=== PATIENT | female | born 1935 | race Caucasian/White ===

== ENCOUNTER 2017-01-26 11:34 | Emergency (ER) | payer OTHER ==
[~2017-01-26] VITALS: Ht 160 cm; Wt 61.2 kg
[~2017-01-26 11:34] MED LIST: AMLODIPINE BESY10 M1 PO; ASPIRIN EC325 M2 PO; ATENOLOL50 M1 PO; ATORVASTATIN CA40 M1 PO; CELEXA10 M1 PO; CENTRUM SILVER1 EAC3 PO; FUROSEMIDE20 M1 PO; JANUVIA100 M1 PO; LISINOPRIL40 M1 PO; METFORMIN HCL1000 M1 PO; NORCO 5-325 TA1 EACH PO; OS-CAL 500+D31 EAC1 PO; VITAMIN E400 UNI4 PO; ZETIA10 M1 PO
--- NOTE | 2017-01-26 12:48 | ED GENERAL ADULT ---
History of Present Illness General Chief Complaint: General Adult Stated Complaint: WEAK PER PT DOESN'T FEEL GOOD Source: patient Exam Limitations: no limitations Vital Signs & Intake/Output Vital Signs & Intake/Output Vital Signs Date Time Temp Pulse Resp B/P B/P Pulse O2 O2 Flow FiO2 Mean Ox Delivery Rate 01/26 1354 97.8 52 18 140/63 96 Room Air 01/26 1138 97.5 62 16 114/57 95 Room Air Triage Note: 81 STATES "I JUST DONT FEEL WELL". STATES SHE HAS NOT HAD THE DESIRE TO EAT, DENIES N/V. HAD DIARRHEA 2 DAYS AGO BUT REPORTS RELIEF WITH IMMODIUM. DENIES COUGH OR URI SYMPTOMS. DENIES URINARY SYMPTOMS. HAS BEEN INSIDE AIR CONDITIONING. SKIN APPEARS SLIGHTLY PALE IN COLOR. AFEBRILE TAKEN FOR EKG Triage Nurses Notes Reviewed? yes HPI: Pt is coming in for a generalized weakness and discomfort for 4-5 days. Pt had 2 episodes of watery non-bloody diarrhea on last Monday without specific causes, c /'o nauseous, but denied ab pain, or vomiting. She took immodium and resolved, but since had low appetite to eat and felt low on energy. She kep herself hydrated with water and orange juice. Today she had another episode of watery diarrhea and took another tablet of immodium. She had no similar episodes before. She is compliant with her diabetic and hypertensive meds. She denied fever, SOB/CP, ab pain, urinary/bowel incontinence, or muscular/ neurological/skin complaints. (VANDANA FORD,FRED MIN) Allergies Coded Allergies: sulfamethoxazole (LIVER INVOLVEMENT 02/03/17) Reconcile Medications Amlodipine Besylate 10 MG TABLET 1 TAB PO DAILY HEART (Reported) Amoxicillin 500 MG CAPSULE 2 CAP PO BID UTI Aspirin (Ecotrin*) 325 MG TABLET.DR 1 TAB PO DAILY HEART/BLOOD (Reported) Atenolol 50 MG TABLET 1 TAB PO DAILY HEART (Reported) Atorvastatin Calcium 40 MG TABLET 1 TAB PO DAILY CHOLESTEROL (Reported) Calcium Carbonate/Vitamin D3 (Os-Raoul 500+D3 Caplet) 1 EACH TABLET 1 TAB PO DAILY SUPPLEMENT (Reported) Ciprofloxacin HCl (Cipro) 250 MG TABLET 1 TAB PO BID UTI Citalopram Hydrobromide (Celexa) 10 MG TABLET 1 TAB PO DAILY DEPRESSION ( Reported) Ezetimibe (Zetia) 10 MG TABLET 1 TAB PO DAILY CHOLESTEROL (Reported) Furosemide 20 MG TABLET 1 TAB PO DAILY WATER PILL (Reported) Lisinopril 40 MG TABLET 1 TAB PO DAILY HEART (Reported) Metformin HCl 1,000 MG TABLET 1 TAB PO BID DIABETES (Reported) Multivit-Min/FA/Lycopen/Lutein (Centrum Silver Tablet) 1 EACH TABLET 1 TAB PO DAILY SUPPLEMENT (Reported) Sitagliptin Phosphate (Januvia) 100 MG TABLET 1 TAB PO DAILY DIABETES ( Reported) Vitamin E Acetate (Vitamin E) 400 UNIT CAPSULE 1 CAP PO DAILY SUPPLEMENT ( Reported) (MELVIN FORD,DAVIS Rich) Past History Travel History Traveled to [place] past 21 day No Medical History Any Pertinent Medical History? see below for history Neurological: NONE EENT: NONE Cardiovascular: CHF, hypertension, hyperlipidemia Respiratory: NONE Gastrointestinal: NONE Hepatic: NONE Renal: NONE Musculoskeletal: osteoporosis Psychiatric: NONE Endocrine: diabetes Blood Disorders: NONE Cancer(s): NONE Pneumonia Vaccine: 04/09/09 Surgical History Surgical History: right hip fracture, left femur fracture Psychosocial History Who do you live with Patient/Self Services at Home None What is your primary language Croatian Tobacco Use: Never used Family History Hx Contributory? No (VANDANA FORD,FRED MIN) Review of Systems Review of Systems Constitutional: Reports: see HPI, weakness. Comments Skin: no jaundice, hives, eczema, rashes, or abnormal moles. Eyes: no irritation, discharge, dry eyes, or vision change. ENMT: no sneezing, snoring, headaches, hearing loss, ear pain, frequent nosebleeds, nose/sinus problems, bleeding gums, dry mouth, mouth ulcers, oral abnormalities, teeth problems, or sore throat. Respiratory: no cough, wheezing, shortness of breath, or coughing up blood. Cardiovascular: no SOB, no palpitations, chest pain, no arm pain on exertion, or leg swelling. Gastrointestinal: diarrhea x 3 episodes + low appetite in last 5 days. no vomiting, diarrhea, constipation, abdominal pain, rectal bleeding. Genitourinary: no incontinence, hematuria, difficulty urinating, or increased frequency. Musculoskeletal: no muscle aches or weakness, no arthralgias/joint pain, and back pain; Neurologic: no loss of consciousness or balance; no weakness, numbness, seizures , or dizziness. Psych: no depression, anxiety, sleep disturbances, homicidal thoughts, or suicidal thoughts. (VANDANA FORD,FRED MIN) Physical Exam Physical Exam General Appearance: no apparent distress, alert, awake, lethargic Comments: Head: normocephalic and atraumatic. Lungs: no dyspnea and good air movement. Cardiovascular: Apical Impulse: not displaced. normal S1 and S2; no murmurs, rubs, or gallops; and RRR. no carotid bruits. Abdomen: normal bowel sound. No masses, tenderness (no guarding, no rebound), or CVA tenderness and soft and non-distended. Liver: non-tender and no hepatomegaly. Spleen: non-tender and no splenomegaly. Musculoskeletal:: normal tone and strength (5/5 throughout) . Joints, Bones, and Muscles: no contractures, malalignment, tenderness, or bony abnormalities and normal movement of all extremities. Extremities: no cyanosis, edema, varicosities, or palpable cord. Neurologic: grossly intact. Skin: no rash, lesions, ulcer, induration, nodules, jaundice, or abnormal nevi and good turgor. Psychiatric: good judgement. Normal mood and affect and active and alert. Orientation to time, place, and person. Recent memory normal and remote memory normal. Core Measures ACS in differential dx? No CVA/TIA Diagnosis: No Severe Sepsis Present: No Septic Shock Present: No (VANDANA FORD,FRED MIN) Progress Differential Diagnoses I considered the following diagnoses in my evaluation of the patient: Diagnostic Imaging: Discussed w/RAD: Radiology Read. CXR Impression: no acute abnormality, no infiltrates, normal size heart, normal mediastinum, PATIENT: UBALDO RATLIFF PRESENT AGE: 81 PATIENT ACCOUNT NO: [id number] : 33 LOCATION: [facility] ORDERING PHYSICIAN: FRED ROSS MD SERVICE DATE: 01/26/177388 EXAM TYPE: RAD - XRY-CHEST XRAY, PA AND LATERAL EXAMINATION: CHEST 2 VIEWS CLINICAL INFORMATION: Fatigue, weakness. COMPARISON: 11/02/2015. TECHNIQUE: PA and lateral views of the chest were obtained. FINDINGS: The cardiac silhouette is not enlarged. The mediastinal and hilar contours are unremarkable. There are neither pleural effusions nor pneumothoraces. There are no consolidations. The lungs are hyperinflated. There is moderate leftward curvature to the lower lumbar spine. IMPRESSION: No evidence for acute disease. Lung hyperinflation. DICTATED BY: STUART MENDOZA MD DATE/TIME DICTATED:01/26/171405 SENIOR INVESTMENT MANAGER:BRENDA DATE/TIME TRANSCRIBED:01/26/171405 CONFIDENTIAL, DO NOT COPY WITHOUT APPROPRIATE AUTHORIZATION. <Electronically signed in Other Vendor System> SIGNED BY: STUART MENDOZA MD 01/26/17 1426 Initial ED EKG: normal axis, normal intervals, normal p-waves, normal QRS complex, normal sinus rhythm (VANDANA FORD,FRED MIN) Plan of Care: Orders Procedure Date/time Status URINALYSIS 01/26 133 Complete COMPREHENSIVE METABOLIC PANEL 01/26 133 Complete CBC WITHOUT DIFFERENTIAL 01/26 1330 Complete EKG 01/26 1139 Active Laboratory Tests 01/26/17 1800: Urine Color YEL, Urine Clarity CLEAR, Urine pH 6.0, Ur Specific Bliss 1.010, Urine Protein 30 H, Urine Ketones NEG, Urine Nitrite NEG, Urine Bilirubin NEG, Urine Urobilinogen 0.2, Ur Leukocyte Esterase SMALL H, Ur Microscopic SEDIMENT EXAMINED, Urine RBC RARE, Urine WBC 15-25 H, Ur Epithelial Cells RARE, Urine Bacteria FEW H, Hyaline Casts 3-5 H, Granular Casts RARE H, Urine Hemoglobin TRACE-INTACT, Urine Glucose NEG 01/26/17 1358: Anion Gap 9, Estimated GFR 39 L, BUN/Creatinine Ratio 18.5, Glucose 99, Calcium 10.1, Total Bilirubin 0.9, AST 31, ALT 42, Alkaline Phosphatase 59, Total Protein 6.6, Albumin 3.9, Globulin 2.7, Albumin/Globulin Ratio 1.4, CBC w Diff NO MAN DIFF REQ, RBC 3.45 L, MCV 90.4, MCH 30.7, RDW 14.3, MPV 6.4 L, Gran % 57.0, Lymphocytes % 26.6, Monocytes % 9.9 H, Eosinophils % 5.7 H, Basophils % 0.8, Absolute Granulocytes 2.0, Absolute Lymphocytes 0.9 L, Absolute Monocytes 0.3, Absolute Eosinophils 0.2, Absolute Basophils 0, PUBS MCHC 34.0 01/26/2017 1752 Pt's bloodwork and HPI led to potential dehydration status. CXR has ruled out pneumonia. We have repleted her with NS and she stated she is feeling better now. Advised to pee for urinalysis to rule out possible UTI. 01/26/2017 1833 Pt's UA revealed UTI. Due to her decreased renal function and drug allergy, we will prescibe her with cipro for take-home meds. (VANDANA FORD,FRED MIN) Comments: 01/26/2017 6:02:09 PM we have updated ubaldo on her test results and she has ambulated easily to the emergency department bathroom to provide a urinalysis. (MELVIN FORD,DAVIS Rich) Departure Departure Disposition: HOME OR SELF CARE Condition: Stable Clinical Impression Primary Impression: Dehydration Referrals: LANA VILLAGOMEZ MD (PCP/Family) Additional Instructions: Please follow up with your primary care doctor within 7-10 days. Please keep yourself hydrated with water and/or orange juice throughout a day. If the symptoms does not improve/get worse, please come back to emergency as soon as possible. Departure Forms: Customer Survey General Discharge Information Prescriptions: Current Visit Scripts Ciprofloxacin HCl (Cipro) 1 TAB PO BID #14 TAB (VANDANA FORD,FRED MIN) Resident Co-Sign Statement Statement: ED Attending supervision documentation- [x] I saw and evaluated the patient. I have also reviewed all the pertinent lab results and diagnostic results. I agree with the findings and the plan of care as documented in the Resident's documentation. [] I have reviewed the ED Record and agree with the Resident's documentation. [] Additions or exceptions (if any) to the Resident's note and plan are summarized below: [] (MELVIN FORD,DAVIS Rich) Critical Care Note Critical Care Note Critical Care Time: non-applicable (VANDANA FORD,FRED MIN)
[2017-01-26 14:17] LABS: ABSOLUTE BASOPHIL COUNT 0 /CUMM (0.0-0.2); ABSOLUTE EOSINOPHIL COUNT 0.2 /CUMM (0.0-0.7); ABSOLUTE LYMPH COUNT 0.9 /CUMM (1.2-3.4); ABSOLUTE MONOCYTE COUNT 0.3 /CUMM (0.10-0.60); BASOPHIL % 0.8 % (0.0-2.0); EOSINOPHIL % 5.7 % (0-5); HEMATOCRIT 31.2 % (37-47); MEAN CORPUSCULAR HGB 30.7 PG (27.0-31.0); MEAN CORPUSCULAR VOLUME 90.4 FL (81.0-99.0); MEAN PLATELET VOLUME 6.4 FL (7.4-10.4); PLATELET COUNT 203 /CUMM (130-400); RBC DISTRIBUTION WIDTH 14.3 % (11.5-14.5); RED BLOOD CELL CT 3.45 /CUMM (4.20-5.40); WHITE BLOOD CELL COUNT 3.5 /CUMM (4.8-10.8)
--- NOTE | 2017-01-26 14:26 | RADIOLOGY REPORT ---
EXAMINATION: CHEST 2 VIEWS CLINICAL INFORMATION: Fatigue, weakness. COMPARISON: 11/02/2015. TECHNIQUE: PA and lateral views of the chest were obtained. FINDINGS: The cardiac silhouette is not enlarged. The mediastinal and hilar contours are unremarkable. There are neither pleural effusions nor pneumothoraces. There are no consolidations. The lungs are hyperinflated. There is moderate leftward curvature to the lower lumbar spine. IMPRESSION: No evidence for acute disease. Lung hyperinflation.
[2017-01-26] MEDS ORDERED: CIPRO250 M1 PO (18:33)
[2017-01-26 18:51] VITALS: BP 159/69
== END 2017-01-26 18:52 ==
LOC: ERH 11:34
DX: E86.0 Dehydration (principal)
CPT/HCPCS: 81001; 93005; 93010

== ENCOUNTER 2017-02-03 19:14 | Emergency (ER) | payer OTHER ==
[~2017-02-03] VITALS: Ht 157.5 cm; Wt 61.2 kg
[~2017-02-03 19:14] MED LIST changes: +CIPRO250 M1 PO
[2017-02-03 20:10] LABS: ABSOLUTE BASOPHIL COUNT 0.1 /CUMM (0.0-0.2); ABSOLUTE EOSINOPHIL COUNT 0.2 /CUMM (0.0-0.7); ABSOLUTE GRANULOCYTE CT 2.5 /CUMM (1.4-6.5); ABSOLUTE LYMPH COUNT 1.2 /CUMM (1.2-3.4); ABSOLUTE MONOCYTE COUNT 0.4 /CUMM (0.10-0.60); BASOPHIL % 1.5 % (0.0-2.0); EOSINOPHIL % 4.4 % (0-5); GRANULOCYTE % 57.6 % (42.2-75.2); HEMATOCRIT 30.8 % (37-47); MEAN CORPUSCULAR HGB 30.5 PG (27.0-31.0); MEAN CORPUSCULAR HGB CONC 33.7 G/DL (33.0-37.0); MEAN CORPUSCULAR VOLUME 90.5 FL (81.0-99.0); MEAN PLATELET VOLUME 6.3 FL (7.4-10.4); PLATELET COUNT 268 /CUMM (130-400); RBC DISTRIBUTION WIDTH 14.8 % (11.5-14.5); RED BLOOD CELL CT 3.41 /CUMM (4.20-5.40); WHITE BLOOD CELL COUNT 4.4 /CUMM (4.8-10.8)
--- NOTE | 2017-02-03 22:43 | ED GI/GU/ABDOMINAL COMPLAINT ---
See Addendum History of Present Illness General Chief Complaint: General Adult Stated Complaint: UTI LAST WEEK NO BETTER Source: patient Exam Limitations: no limitations Vital Signs & Intake/Output Vital Signs & Intake/Output Vital Signs Date Time Temp Pulse Resp B/P B/P Pulse O2 O2 Flow FiO2 Mean Ox Delivery Rate 02/03 2257 98.2 67 16 139/75 97 Room Air 02/03 2230 Room Air 02/03 1938 98.0 63 16 143/79 98 Room Air Room Air ED Intake and Output 02/04 0000 02/03 1200 Intake Total 0 Output Total Balance 0 Intake, Oral 0 Patient 135 lb Weight Allergies Coded Allergies: sulfamethoxazole (LIVER INVOLVEMENT 02/03/17) Reconcile Medications Amlodipine Besylate 10 MG TABLET 1 TAB PO DAILY HEART (Reported) Amoxicillin 500 MG CAPSULE 2 CAP PO BID UTI Aspirin (Ecotrin*) 325 MG TABLET.DR 1 TAB PO DAILY HEART/BLOOD (Reported) Atenolol 50 MG TABLET 1 TAB PO DAILY HEART (Reported) Atorvastatin Calcium 40 MG TABLET 1 TAB PO DAILY CHOLESTEROL (Reported) Calcium Carbonate/Vitamin D3 (Os-Raoul 500+D3 Caplet) 1 EACH TABLET 1 TAB PO DAILY SUPPLEMENT (Reported) Ciprofloxacin HCl (Cipro) 250 MG TABLET 1 TAB PO BID UTI Citalopram Hydrobromide (Celexa) 10 MG TABLET 1 TAB PO DAILY DEPRESSION ( Reported) Ezetimibe (Zetia) 10 MG TABLET 1 TAB PO DAILY CHOLESTEROL (Reported) Furosemide 20 MG TABLET 1 TAB PO DAILY WATER PILL (Reported) Lisinopril 40 MG TABLET 1 TAB PO DAILY HEART (Reported) Metformin HCl 1,000 MG TABLET 1 TAB PO BID DIABETES (Reported) Multivit-Min/FA/Lycopen/Lutein (Centrum Silver Tablet) 1 EACH TABLET 1 TAB PO DAILY SUPPLEMENT (Reported) Sitagliptin Phosphate (Januvia) 100 MG TABLET 1 TAB PO DAILY DIABETES ( Reported) Vitamin E Acetate (Vitamin E) 400 UNIT CAPSULE 1 CAP PO DAILY SUPPLEMENT ( Reported) Triage Note: PT TO TRIAGE WITH BURNING WITH URINATION, INCREASED FREQUENCY. DENIES FEVERS. DENIES ODOR TO URINE. PT IS ALERT AND ORIENTED Triage Nurses Notes Reviewed? yes ? N Is pt currently ? No HPI: Patient is a 81-year-old female with a past medical history of recurrent UTI, diabetes, hypertension, hyperlipidemia, and osteoporosis presenting for continuing urinary tract infection symptoms despite ciprofloxacin for 1 week. The patient was last seen here on January 26 for UTI symptoms, dehydration, and diarreah. She states she still has increased urinary frequency and reports having to urinate every 10 minutes with dysuria. She denies any hematuria. She states her appetite has improved, her diarreah has resolved since her last visit and she is drinking a lot of water. She reports her last hemoglobin A1c was 7.2. She denies any vaginal discharge, fevers, chills, night sweats, headaches, fatigue, chest pain, palpitations, shortness breath, or abdominal pain. Looking at the most recent urinary cultures (January) - it grew enterococcus resistant to Cipro and Proteus mirabilis. (SHON FORD,RON) Past History Travel History Traveled to [place] past 21 day No Medical History Any Pertinent Medical History? see below for history Neurological: NONE EENT: NONE Cardiovascular: CHF, hypertension, hyperlipidemia Respiratory: NONE Gastrointestinal: NONE Hepatic: NONE Renal: NONE Musculoskeletal: osteoporosis, L HIP FRACTURE RIGHT HIP FX Psychiatric: NONE Endocrine: diabetes Blood Disorders: NONE Cancer(s): NONE Surgical History Surgical History: right hip fracture, left femur fracture Psychosocial History Who do you live with Patient/Self Services at Home None What is your primary language American Tobacco Use: Never used ETOH Use: denies use Illicit Drug Use: denies illicit drug use Family History Hx Contributory? No (SHON FORD,RON) Review of Systems Review of Systems Constitutional: Denies: chills, diaphoresis, fever. Respiratory: Denies: cough, short of breath. Cardiovascular: Denies: chest pain, palpitations, peripheral edema. GI: Denies: abdominal pain, diarrhea. Genitourinary: Reports: dysuria, frequency. Denies: hematuria. (SHON FORD,RON) Physical Exam Physical Exam General Appearance: well developed/nourished, no apparent distress, alert, awake Head: atraumatic, normal appearance Eyes: Bilateral: PERRL, EOMI. Respiratory: normal breath sounds Cardiovascular: regular rate/rhythm, normal peripheral pulses Peripheral Pulses: 2+ radial (R), 2+ radial (L) Gastrointestinal: normal bowel sounds, soft, non-tender Back: no cva tenderness Extremities: L foot is more swollen that right foot. pt states this is due to fracture of her L ankle previously and is normal. no other peripheral edema noted Core Measures ACS in differential dx? No Severe Sepsis Present: No Septic Shock Present: No (SHON FORD,RON) Progress Differential Diagnosis: kidney stone, UTI/pyelo, interstitial cystitis, polycystic kidney disease, genitourinary malignancy Plan of Care: Orders Procedure Date/time Status COMPREHENSIVE METABOLIC PANEL 02/03 1938 Complete CBC WITHOUT DIFFERENTIAL 02/03 1938 Complete CULTURE,URINE 02/04 1936 Active URINALYSIS 02/04 1936 Complete Laboratory Tests 02/03/171957: Urine Color YEL, Urine Clarity CLEAR, Urine pH 6.0, Ur Specific [place] <= 1.005 , Urine Protein 30 H, Urine Ketones NEG, Urine Nitrite NEG, Urine Bilirubin NEG , Urine Urobilinogen 0.2, Ur Leukocyte Esterase TRACE H, Ur Microscopic SEDIMENT EXAMINED, Urine RBC FEW H, Urine WBC 5-10 H, Ur Epithelial Cells OCCAS, Urine Crystals RARE [place] OX, Urine Hemoglobin NEG, Urine Glucose NEG 02/03/171947: Anion Gap 12, Estimated GFR 60, BUN/Creatinine Ratio 15.6, Glucose 101 H, Calcium 9.7, Total Bilirubin 1.0, AST 23, ALT 23, Alkaline Phosphatase 70, Total Protein 6.9, Albumin 3.9, Globulin 3.0, Albumin/Globulin Ratio 1.3, CBC w Diff NO MAN DIFF REQ, RBC 3.41 L, MCV 90.5, MCH 30.5, RDW 14.8 H, MPV 6.3 L, Gran % 57.6, Lymphocytes % 28.2, Monocytes % 8.3, Eosinophils % 4.4, Basophils % 1.5, Absolute Granulocytes 2.5, Absolute Lymphocytes 1.2, Absolute Monocytes 0.4, Absolute Eosinophils 0.2, Absolute Basophils 0.1, PUBS MCHC 33.7 Microbiology 02/03 1958 URINE ROUT: Urine Culture - RECD Initial ED EKG: none Comments: Pt returning for continuing UTI symptoms despite cipro x1 week. Afebrile, VSS, WBC 4.4. No urine cultures done last visit on . Previous ucx shows enterococcus resistant to cipro but sensitivie to ampicillin and amox/clav. Pt started on amoxicilin 500mg BID x 5 days. Ucx pending. (SHON FORD,RON) Departure Departure Disposition: HOME OR SELF CARE Condition: Stable Clinical Impression Primary Impression: UTI (urinary tract infection) Referrals: DAHLIA FORD,LANA Priest (PCP/Family) Additional Instructions: Please take your medicine as instructed. Please follow up with your primary care physician within 1 week. Please return to the emergency department for any new concerns or worsening symptoms. Departure Forms: Customer Survey General Discharge Information Prescriptions: Current Visit Scripts Amoxicillin 2 CAP PO BID #10 CAP (SHON FORD,[facility]) Resident Co-Sign Statement Statement: ED Attending supervision documentation- [X] I saw and evaluated the patient. I have also reviewed all the pertinent lab results and diagnostic results. I agree with the findings and the plan of care as documented in the Resident's documentation. [X] I have reviewed the ED Record and agree with the Resident's documentation. [] Additions or exceptions (if any) to the Resident's note and plan are summarized below: [I I have personally seen and examined this patient. I have read the above note and agree with what has been written. Patient diagnosed with a UTI 8 days ago and has been taking antibiotics however still feels the frequency, urgency and dysuria. Patient had a urine culture back in 2011 which grew enterococcus as well as Proteus. Resistant to Cipro, which the patient has been taking for the past 8 days. They were sensitive to ampicillin. There is no back pain. There is no fevers or chills. Patient started on amoxicillin.] (DEIRDRE FORD,ANNABELLA Paulino)
[2017-02-03] MEDS ORDERED: AMOXICILLIN500 M2 PO (22:46)
[2017-02-03 22:57] VITALS: BP 139/75
== END 2017-02-03 22:58 ==
LOC: ERH 19:14
PROVIDERS: Emergency Medicine
DX: N39.0 Urinary tract infection, site not specified (principal); E11.9 Type 2 diabetes mellitus without complications; Z79.84 Long term (current) use of oral hypoglycemic drugs
CPT/HCPCS: 81001; 87086